=== PATIENT | female | born 1980 | race Two or more races ===

== ENCOUNTER → 2017-02-09 | Outpatient (REF) | payer OTHER | LOC: M SFHCLERA 16:39 | PROVIDERS: ATTEND Nurse Practitioner Family | DX: J02.9 Acute pharyngitis, unspecified (principal) ==

== ENCOUNTER → 2017-02-20 | Outpatient (REF) | payer OTHER | LOC: M SFHCLERA 17:44 | PROVIDERS: ATTEND Physician Assistant | DX: Z20.818 Contact with and (suspected) exposure to other bacterial communicable diseases (principal) ==

== ENCOUNTER → 2021-02-06 | Outpatient (CLI) | payer OTHER | LOC: M WHC 15:59 | PROVIDERS: ATTEND Student in an Organized Health Care Education/Training Program | DX: Z12.31 Encounter for screening mammogram for malignant neoplasm of breast (principal) ==

== ENCOUNTER 2021-02-22 13:45 | Outpatient (CLI) | payer OTHER ==
[~2021-02-22] VITALS: Ht 162.6 cm; Wt 61.3 kg
[~2021-02-22 13:45] MED LIST: ACETAMINOPHEN 500 MG TAB PO ONE; IRON SUCROSE 200 MG in NS 100 ML OVER 1 HR IV ONE
[2021-02-22 13:50] VITALS: BP 131/86
[2021-02-22] MEDS ORDERED: CALC500C16 PO (14:21)
[2021-02-22] MEDS ORDERED: MAGN400C PO (14:21)
[2021-02-22] MEDS ORDERED: LOES1TAB12 PO (14:21)
[2021-02-22] MEDS ORDERED: FERR325T3 PO (14:21)
[2021-02-22] MEDS ORDERED: TOPA100T12 PO (14:21)
[2021-02-22] MEDS ORDERED: VITAMIN D PO (14:21)
[2021-02-22] MEDS ORDERED: MULTTAB20 PO (14:21)
[2021-02-22 15:39] VITALS: BP 121/75
== END 2021-02-22 15:40 | disposition home or self-care (01) ==
LOC: M INFU 13:45
PROVIDERS: ATTEND Student in an Organized Health Care Education/Training Program
DX: D50.8 Other iron deficiency anemias (principal)
CPT/HCPCS: 96365; J1756

== ENCOUNTER 2021-03-01 14:26 | Outpatient (CLI) | payer OTHER ==
[~2021-03-01] VITALS: Ht 162.6 cm; Wt 61.3 kg
[~2021-03-01 14:26] MED LIST changes: -ACETAMINOPHEN 500 MG TAB PO ONE; +CALC500C16 PO; +FERR325T3 PO; -IRON SUCROSE 200 MG in NS 100 ML OVER 1 HR IV ONE; +LOES1TAB12 PO; +MAGN400C PO; +MULTTAB20 PO; +TOPA100T12 PO; +VITAMIN D PO
[2021-03-01 14:30] VITALS: BP 135/80
[2021-03-01] MEDS ORDERED: ACETAMINOPHEN 500 MG TAB PO ONE (14:30)
[2021-03-01] MEDS ORDERED: IRON SUCROSE 200 MG in NS 100 ML OVER 1 HR IV ONE (14:30)
[2021-03-01 16:00] VITALS: BP 120/68
== END 2021-03-01 16:00 | disposition home or self-care (01) ==
LOC: M INFU 14:26
PROVIDERS: ATTEND Student in an Organized Health Care Education/Training Program
DX: D50.8 Other iron deficiency anemias (principal)
CPT/HCPCS: 96365; J1756

== ENCOUNTER 2021-03-08 14:02 | Outpatient (CLI) | payer OTHER ==
[~2021-03-08] VITALS: Ht 160 cm; Wt 61.4 kg
[2021-03-08 14:05] VITALS: BP 123/72
[2021-03-08] MEDS ORDERED: ACETAMINOPHEN 500 MG TAB PO ONE (14:30)
[2021-03-08] MEDS ORDERED: IRON SUCROSE 200 MG in NS 100 ML OVER 1 HR IV ONE (14:30)
[2021-03-08 15:38] VITALS: BP 114/66
== END 2021-03-08 15:48 | disposition home or self-care (01) ==
LOC: M INFU 14:02
PROVIDERS: ATTEND Student in an Organized Health Care Education/Training Program
DX: D50.8 Other iron deficiency anemias (principal)
CPT/HCPCS: 96365; J1756

== ENCOUNTER 2021-03-15 10:04 | Outpatient (CLI) | payer OTHER ==
[~2021-03-15] VITALS: Ht 160 cm; Wt 61.0 kg
[~2021-03-15 10:04] MED LIST changes: +ACETAMINOPHEN 500 MG TAB PO ONE; +IRON SUCROSE 200 MG in NS 100 ML OVER 1 HR IV ONE
[2021-03-15 10:18] VITALS: BP 108/82
[2021-03-15 11:00] VITALS: BP 101/66
[2021-03-15 12:00] VITALS: BP 116/78
== END 2021-03-15 12:00 | disposition home or self-care (01) ==
LOC: M INFU 10:04
PROVIDERS: ATTEND Student in an Organized Health Care Education/Training Program
DX: D50.8 Other iron deficiency anemias (principal)
CPT/HCPCS: 96365; J1756

== ENCOUNTER 2021-03-22 12:45 | Outpatient (CLI) | payer OTHER ==
[~2021-03-22] VITALS: Ht 160 cm; Wt 61.0 kg
[~2021-03-22 12:45] MED LIST changes: -ACETAMINOPHEN 500 MG TAB PO ONE; -IRON SUCROSE 200 MG in NS 100 ML OVER 1 HR IV ONE
[2021-03-22 13:10] VITALS: BP 118/74
[2021-03-22] MEDS ORDERED: IRON SUCROSE 200 MG in NS 100 ML OVER 1 HR IV ONE (14:30)
[2021-03-22] MEDS ORDERED: ACETAMINOPHEN 500 MG TAB PO ONE (14:30)
== END 2021-03-22 15:00 | disposition home or self-care (01) ==
LOC: M INFU 12:45
PROVIDERS: ATTEND Student in an Organized Health Care Education/Training Program
DX: D50.8 Other iron deficiency anemias (principal)
CPT/HCPCS: 96365; J1756

== ENCOUNTER → 2022-03-21 | Outpatient (CLI) | payer OTHER | LOC: M WHC 14:10 | PROVIDERS: ATTEND Student in an Organized Health Care Education/Training Program | DX: Z12.31 Encounter for screening mammogram for malignant neoplasm of breast (principal) ==

== ENCOUNTER 2022-08-06 07:30 | Outpatient (CLI) | payer OTHER ==
[~2022-08-06] VITALS: Ht 162.6 cm; Wt 56.0 kg
[2022-08-06 07:30] VITALS: BP 118/85
[~2022-08-06 07:30] MED LIST changes: +ALBUTEROL SULFATE 2.5MG/0.5ML INH NEB SOLN INH PRN; +EPINEPHrine INJ 1 MG/ML 1ML AMP IM PRN; +diphenhydrAMINE 50MG/ML VIAL IV PRN; +methylPREDNISolone 125MG 2ML VIAL IV PRN
[2022-08-06] MEDS ORDERED: IRON SUCROSE 200 MG in NS 100 ML OVER 1 HR IV ONE (08:00)
[2022-08-06] MEDS ORDERED: ACETAMINOPHEN TAB 650MG DOSE (2X325MG) PO ONE (08:00)
[2022-08-06] MEDS ORDERED: NS 1,000 ML IV SCH (08:00)
== END 2022-08-06 09:40 | disposition home or self-care (01) ==
LOC: M INFU 07:30
PROVIDERS: ATTEND Family Medicine
DX: D50.0 Iron deficiency anemia secondary to blood loss (chronic) (principal)
CPT/HCPCS: 96365; J1756

== ENCOUNTER 2022-08-13 10:50 | Outpatient (CLI) | payer OTHER ==
[~2022-08-13] VITALS: Ht 162.6 cm; Wt 56.0 kg
[~2022-08-13 10:50] MED LIST changes: -ALBUTEROL SULFATE 2.5MG/0.5ML INH NEB SOLN INH PRN; -EPINEPHrine INJ 1 MG/ML 1ML AMP IM PRN; -diphenhydrAMINE 50MG/ML VIAL IV PRN; -methylPREDNISolone 125MG 2ML VIAL IV PRN
[2022-08-13] MEDS ORDERED: IRON SUCROSE 200 MG in NS 100 ML OVER 1 HR IV ONE (11:00)
[2022-08-13 12:30] VITALS: BP 124/86
== END 2022-08-13 12:30 | disposition home or self-care (01) ==
LOC: M INFU 10:50
PROVIDERS: ATTEND Family Medicine
DX: D50.0 Iron deficiency anemia secondary to blood loss (chronic) (principal)
CPT/HCPCS: 96365; J1756

== ENCOUNTER 2022-08-20 09:45 | Outpatient (CLI) | payer OTHER ==
[~2022-08-20 09:45] MED LIST changes: +ACETAMINOPHEN TAB 650MG DOSE (2X325MG) PO ONE; +ALBUTEROL SULFATE 2.5MG/0.5ML INH NEB SOLN INH PRN; +EPINEPHrine INJ 1 MG/ML 1ML AMP IM PRN; +IRON SUCROSE 200 MG in NS 100 ML OVER 1 HR IV ONE; +NS 1,000 ML IV SCH; +diphenhydrAMINE 50MG/ML VIAL IV PRN; +methylPREDNISolone 125MG 2ML VIAL IV PRN
[2022-08-20 10:00] VITALS: BP 118/78
[2022-08-20 11:12] VITALS: BP 118/77
== END 2022-08-20 11:15 | disposition home or self-care (01) ==
LOC: M INFU 09:45
PROVIDERS: ATTEND Family Medicine
DX: D50.9 Iron deficiency anemia, unspecified (principal)
CPT/HCPCS: 96365; J1756

== ENCOUNTER 2022-08-27 09:10 | Outpatient (CLI) | payer OTHER ==
[~2022-08-27] VITALS: Ht 162.6 cm; Wt 56.0 kg
[~2022-08-27 09:10] MED LIST changes: -ACETAMINOPHEN TAB 650MG DOSE (2X325MG) PO ONE; -IRON SUCROSE 200 MG in NS 100 ML OVER 1 HR IV ONE; -NS 1,000 ML IV SCH
[2022-08-27] MEDS ORDERED: IRON SUCROSE 200 MG in NS 100 ML OVER 1 HR IV ONE (09:30)
[2022-08-27] MEDS ORDERED: ACETAMINOPHEN TAB 650MG DOSE (2X325MG) PO ONE (09:30)
[2022-08-27] MEDS ORDERED: NS 1,000 ML IV SCH (09:30)
[2022-08-27 09:46] VITALS: BP 149/80
[2022-08-27 10:55] VITALS: BP 146/86
== END 2022-08-27 10:55 | disposition home or self-care (01) ==
LOC: M INFU 09:10
PROVIDERS: ATTEND Family Medicine
DX: D50.0 Iron deficiency anemia secondary to blood loss (chronic) (principal)
CPT/HCPCS: 96365; J1756

== ENCOUNTER 2022-09-03 09:25 | Outpatient (CLI) | payer OTHER ==
[~2022-09-03] VITALS: Ht 162.6 cm; Wt 54.0 kg
[2022-09-03] MEDS ORDERED: IRON SUCROSE 200 MG in NS 100 ML OVER 1 HR IV ONE (09:30)
[2022-09-03] MEDS ORDERED: NS 1,000 ML IV SCH (09:30)
[2022-09-03] MEDS ORDERED: ACETAMINOPHEN TAB 650MG DOSE (2X325MG) PO ONE (09:30)
[2022-09-03 10:40] VITALS: BP 129/75
[2022-09-03 10:45] VITALS: BP 135/84
== END 2022-09-03 10:45 | disposition home or self-care (01) ==
LOC: M INFU 09:25
PROVIDERS: ATTEND Family Medicine
DX: D50.0 Iron deficiency anemia secondary to blood loss (chronic) (principal)
CPT/HCPCS: 96365; J1756

== ENCOUNTER → 2023-05-24 | Outpatient (CLI) | payer OTHER ==
[~2023-05-24] MED LIST changes: -ALBUTEROL SULFATE 2.5MG/0.5ML INH NEB SOLN INH PRN; -EPINEPHrine INJ 1 MG/ML 1ML AMP IM PRN; -diphenhydrAMINE 50MG/ML VIAL IV PRN; -methylPREDNISolone 125MG 2ML VIAL IV PRN
== END ==
LOC: M WHC 12:28
PROVIDERS: ATTEND Student in an Organized Health Care Education/Training Program
DX: Z12.31 Encounter for screening mammogram for malignant neoplasm of breast (principal)